=== PATIENT | female | born 2000 | race Two or more races ===

== ENCOUNTER 2023-02-02 17:26 | Emergency (ER) | payer OTHER ==
[~2023-02-02] VITALS: Ht 167.6 cm; Wt 65.4 kg
[2023-02-02] MEDS ORDERED: IBUPROFEN 600 MG TAB PO ONE (18:30)
[2023-02-02] MEDS ORDERED: AMOX500T3 PO (18:31)
[2023-02-02 18:36] VITALS: BP 123/65; PULSE 109; RESP 16; TEMP 99; O2SAT 97
== END 2023-02-02 18:40 | disposition home or self-care (01) ==
LOC: ER 17:26
DX: J03.90 Acute tonsillitis, unspecified (principal)

== ENCOUNTER 2024-11-06 13:32 | Emergency (ER) | payer SELFPAY ==
[~2024-11-06] VITALS: Ht 167.6 cm; Wt 70.6 kg
[~2024-11-06 13:32] MED LIST: AMOX500T3 PO
[2024-11-06] MEDS ORDERED: NAPR-746 PO (15:12)
--- NOTE | 2024-11-06 15:13 | ED.PDOC ---
Musculoskeletal HPI Comments 24 year old presents for L trigger finger to thumb. Symptoms come and go. Worsened with prolonged movements. Not taking medications at this time. Chief Complaint: Upper Extremity Time Seen by MD: 13:57 Primary Care Provider: CIELO Reviewed Notes: Nurses Notes, Medications, Allergies Allergies: Coded Allergies: NO KNOWN ALLERGIES (Unverified , 02/02/23) Home Meds Active Scripts Naproxen (Naproxen) 500 Mg Tab, 500 MG PO BIDPC for 14 Days, #28 TAB 0 Refills Prov:HARPREET DANIEL NP 11/06/24 Amoxicillin Trihydrate (Amoxicillin) 500 Mg Tab, 1 TAB PO BID for 10 Days, #20 TAB 0 Refills Prov:CIPRIANO FAUSTIN 02/02/23 Information Source: Patient Mode of Arrival: Ambulatory Past Medical History PAST MEDICAL HISTORY: Denies Surgical History: Denies all surgeries EMERGENCY DEPT TECH History: No Pertinent EMERGENCY DEPT TECH History Family History Family History: Reviewed,noncontributory to illness Social History Smoker: Non-Smoker Alcohol: Denies ETOH Use Drugs: Denies Drug Use Lives In: Home All Other Systems: Reviewed and Negative (Per HPI) Physical Exam General Appearance: No Apparent Distress, Normal HEENT: Normal ENT Inspection, Pharynx Normal, TMs Normal Neck: Full Range of Motion, Non-Tender, Normal, Normal Inspection Respiratory: Chest Non-Tender, Lungs Clear, No Accessory Muscle Use, No Respiratory Distress, Normal Breath Sounds Cardiovascular: No Edema, No JVD, No Murmur, No Gallop, Normal Peripheral Pulses, Regular Rate/Rhythm Breast Exam: Deferred Gastrointestinal: No Organomegaly, Non Tender, No Pulsatile Mass, Normal Bowel Sounds, Soft Genitalia: Deferred Pelvic: Deferred Rectal: Deferred Extremities: No calf tenderness, Normal capillary refill, Normal inspection, Normal range of motion, Non-tender, No pedal edema Musculoskeletal : Apperance: Normal Neurologic: Alert, retail wireless sales consultant II-XII nml as Tested, No Motor Deficits, Normal Affect, Normal Mood, No Sensory Deficits Cerebellar Function: Normal Reflexes: Normal Skin: Dry, Normal Color, Warm Lymphatic: No Adenopathy Was a procedure done? Was a procedure done?: No Images 1 - Localized TTP. Trigger finger noticeable with flexion-extension of the thumb Differential Diagnosis EXT Differential Diagnosis: Other X-Ray, Labs, Meds, VS Vital Signs Date Time Temp Pulse Resp B/P (MAP) Pulse Ox O2 Delivery O2 Flow Rate FiO2 11/06/24 15:14 73 16 99 Room Air 11/06/24 15:14 98.3 73 16 128/88 (101) 99 98.3 11/06/24 14:34 98.0 73 16 128/88 (101) 99 98.0 X-Ray, Labs, Meds, VS Comment Findings consistent with trigger finger. Conservative treatment for now. Patient is stable for discharge at this time. External notes reviewed. Test results and diagnostic imaging interpreted. All diagnostic findings, discharge care, education and instructions provided Follow-up with PCP in 2 to 3 days Patient verbalized understanding and agreed to treatment plan Vital signs stable, afebrile, no acute distress noted Patient ambulatory with strong steady gait Advised to return precautions for any new or worsening symptoms, return to ER immediately for re-evaluation Patient is aware that the purpose of this visit was for an acute medical emergency requiring emergent stabilization. Chronic conditions, including malignancies have not been ruled out. Patient is instructed to follow up with PCP as directed and discharge instructions for continued care and workup. If unable to arrange follow-up, patient is to return to the emergency department for reassessment. Patient (parent or legal guardian if applicable) was given verbal and written discharge instructions and acknowledges understanding. Time of 1ST Reevaluation: 17:59 Reevaluation 1ST: Improved Patient Education/Counseling: Diagnosis, Treatment Family Education/Counseling: Diagnosis, Treatment Departure 1 Departure Time of Disposition: 15:12 Impression: Primary Impression: Trigger finger, left Qualified Codes: M65.312 - Trigger thumb, left thumb Disposition: HOME / SELF CARE / HOMELESS Condition: Fair e-Prescriptions Naproxen (Naproxen) 500 Mg Tab 500 MG PO BIDPC for 14 Days, #28 TAB 0 Refills Prov: HARPREET DANIEL NP 11/06/24 Critical Care Note Critical Care Time?: No Stability Stability form required: No Heart Score Heart Score: Heart Score Response (Comments) Value History N/A 0 EKG N/A 0 Age N/A 0 Risk Factors N/A 0 Troponin N/A 0 Total 0 HARPREET DANIEL SHEET MANUFACTURING SUPERVISOR November 06, 2024 15:12
[2024-11-06 15:14] VITALS: BP 128/88; PULSE 73; RESP 16; TEMP 98.3; O2SAT 99
== END 2024-11-06 15:11 | disposition home or self-care (01) ==
LOC: ER 13:35
DX: M65.312 Trigger thumb, left thumb (principal); Z79.899 Other long term (current) drug therapy

== ENCOUNTER 2025-03-16 20:43 | Emergency (ER) | payer MEDICAID, OTHER ==
[~2025-03-16] VITALS: Ht 167.6 cm; Wt 64.0 kg
[~2025-03-16 20:43] MED LIST changes: +NAPR-746 PO
[2025-03-16 22:28] LABS: Hematocrit 39.7 % (36.0-46.0); Hemoglobin 13.2 g/dL (12.2-16.2); Mean Corpuscular Hemoglobin 28.0 pg (28.0-32.0); Mean Corpuscular Volume 83.9 fL (80.0-100.0); Nucleated Red Blood Cells % 0.1 %
[2025-03-16 22:38] LABS: Chloride 103 mmol/L (98-107); Potassium 4.0 mmol/L (3.5-5.1); Sodium 139 mmol/L (136-145)
[2025-03-16 22:39] LABS: Anion Gap 10 (5-15); Carbon Dioxide 26 mmol/L (20-31)
[2025-03-16 22:40] LABS: Calcium 10.0 mg/dL (8.7-10.4)
[2025-03-16 22:44] LABS: Glucose 98 mg/dL (74-106)
[2025-03-16 22:45] LABS: BUN/Creatinine Ratio 6.2 (10.0-20.0); Blood Urea Nitrogen < 5 mg/dL (9-23)
--- NOTE | 2025-03-17 04:36 | ED.PDOC ---
History of Present Illness HPI Comments 24-year-old female who presents with chief complaint of a nonradiating, RLQ abdominal pain, nausea, and diarrhea. Patient also reports heavy with large clot production, following recent onset of her menstrual cycle. Pain is worse with inspiration. Reports on being possibly . No endorsement of any recent travel, sick contact, injuries, or further relevant or pertinent history. Denies on having any vomiting, bloody stools, constipation, fever, chills, or further associated symptoms. REVIEW OF SYSTEMS: General: No fever, no chills, HEENT: No neck pain, no blurred vision Cardiac: No chest pain. No palpitations. Lungs: No shortness of breath, GI: Abdominal pain, nausea, diarrhea, no vomiting : Heavy vaginal bleeding with clot production. Musculoskeletal: No joint pain , no back pain Skin: No rash, no wound Neuro: No headache, no dizziness, no syncope PHYSICAL EXAM: General: Awake, alert and oriented. No acute distress. Skin: Skin in warm, dry and intact without rashes or lesions. HEENT: The head is normocephalic and atraumatic. Conjunctivae are clear without exudates or hemorrhage. Sclera is non-icteric. Neck: Normal range of motion. No JVD. Cardiac: Regular rate Respiratory: No signs of respiratory distress. No Stridor. Gastrointestinal: RLQ and right flank tenderness. Extremities: Upper and lower extremities are atraumatic in appearance without deformity. Neurological: The patient is awake, alert and oriented to person, place, and time with normal speech. Speech is clear. There is no facial asymmetry. Psychiatric: Appropriate mood and affect. Good judgement and insight. Chief Complaint: Abdominal Pain Time Seen by MD: 04:00 Primary Care Provider: CIELO Allergies: Coded Allergies: NO KNOWN ALLERGIES (Unverified , 02/02/23) Home Meds Active Scripts Naproxen (Naproxen) 500 Mg Tab, 500 MG PO BIDPC for 14 Days, #28 TAB 0 Refills Prov:HARPREET DANIEL NP 11/06/24 Amoxicillin Trihydrate (Amoxicillin) 500 Mg Tab, 1 TAB PO BID for 10 Days, #20 TAB 0 Refills Prov:CIPRIANO FAUSTIN 02/02/23 Information Source: Patient Mode of Arrival: Ambulatory Past Medical History PAST MEDICAL HISTORY: Denies Surgical History: Denies all surgeries LEGAL RECRUITER History: No Pertinent LEGAL RECRUITER History Family History Family History: Reviewed,noncontributory to illness Social History Smoker: Non-Smoker Alcohol: Denies ETOH Use Drugs: Denies Drug Use Lives In: Home Was a procedure done? Was a procedure done?: No Differential Dx Considerations may include: Differential diagnoses considered include: Abdominal aortic aneurysm, SC, esophageal rupture, intestinal obstruction, mesenteric ischemia, perforated viscus or solid organ rupture, CHF with hepatomegaly, pneumonia, abscess, appendicitis, biliary disease, diverticulitis, gastritis, gastroenteritis, hepatitis, hernia, inflammatory bowel disease, pancreatitis, peptic ulcer disease, urinary tract infection, ureteral colic, constipation, GERD, irritable syndrome, abdominal wall pain, nonspecific abdominal pain, herpes zoster, nephrolithiasis. Also ruptured ectopic , ovarian torsion/cyst, tubo- ovarian abscess, PID, endometriosis, mittleschmerz. X-Ray, Labs, Meds, VS Vital Signs Date Time Temp Pulse Resp B/P (MAP) Pulse Ox O2 Delivery O2 Flow Rate FiO2 03/17/25 10:15 Room Air* 0 21 03/17/25 10:01 75 17 108/66 03/17/25 10:00 98.1 84 18 108/66 (80) 98 98.1 03/17/25 07:06 98.2 86 20 109/50 (69) 99 98.2 03/17/25 07:06 62 20 99 Room Air 03/17/25 05:37 97.8 82 18 129/62 (84) 98 97.8 03/17/25 01:02 99.3 82 14 120/58 (78) 96 99.3 03/16/25 21:06 99.9 90 16 129/89 96 99.9 Lab Test 03/17/25 05:52 03/16/25 22:02 Range/Units Urine Color Yellow Yellow Urine Clarity Clear Clear Urine pH 6.0 5.0-9.0 Urine Specific Lipan 1.034 1.001-1.035 Urine Protein Trace H Negative Urine Ketones 4+ H Negative Urine Blood Normal Negative /uL Urine Nitrite Negative Negative Urine Bilirubin Negative Negative Urine Urobilinogen Normal Negative mg/dL Urine Leukocyte Esterase Negative Negative /uL Urine Glucose Normal Normal mg/dL Urine Test Negative Negative White Blood Count 14.7 H 4.4-10.8 10^3/uL Red Blood Count 4.73 4.0-5.20 10^6/uL Hemoglobin 13.2 12.2-16.2 g/dL Hematocrit 39.7 36.0-46.0 % Mean Corpuscular Volume 83.9 80.0-100.0 fL Mean Corpuscular Hemoglobin 28.0 28.0-32.0 pg Mean Corpuscular Hemoglobin Concent 33.3 32.0-36.0 g/dL Red Cell Distribution Width 14.3 11.8-14.3 % Platelet Count 346 140-450 10^3/uL Mean Platelet Volume 7.3 6.9-10.8 fL Neutrophils (%) (Auto) 82.3 H 37.0-80.0 % Lymphocytes (%) (Auto) 9.1 L 10.0-50.0 % Monocytes (%) (Auto) 7.9 0.0-12.0 % Eosinophils (%) (Auto) 0.6 0.0-7.0 % Basophils (%) (Auto) 0.1 0.0-2.0 % Neutrophils # (Auto) 12.1 H 1.6-8.6 10 ^3/uL Lymphocytes # (Auto) 1.3 0.4-5.4 10 ^3/uL Monocytes # (Auto) 1.2 0-1.3 10 ^3/uL Eosinophils # (Auto) 0.1 0-0.8 10 ^3/uL Basophils # (Auto) 0 0-0.2 10 ^3/uL Nucleated Red Blood Cells 0.1 % Sodium Level 139 136-145 mmol/L Potassium Level 4.0 3.5-5.1 mmol/L Chloride Level 103 98-107 mmol/L Carbon Dioxide Level 26 20-31 mmol/L Anion Gap 10 5-15 Blood Urea Nitrogen < 5 L 9-23 mg/dL Creatinine 0.81 0.550-1.02 mg/dL Glomerular Filtration Rate Calc 105 >90 mL/min BUN/Creatinine Ratio 6.2 L 10.0-20.0 Serum Glucose 98 74-106 mg/dL Calcium Level 10.0 8.7-10.4 mg/dL Time of 1ST Reevaluation: 04:30 Reevaluation 1ST: Unchanged Patient Education/Counseling: Need For Follow Up Family Education/Counseling: No Family Present Change of Shift?: Yes (Signed out to Dr. Irizarry at 0600) SEPSIS Sepsis Screen Date sepsis recognized/suspect: Mar 16, 2025 Time Sepsis recognized/suspect: 2110 Recent Procedure: No On Antibiotic Therapy: No Respiratory Rate >20: No Heart Rate >90: No Temp<36 C (96.8 F) or >38.3 C: No SBP <90 or MAP <65 mmHG: No New Acute Mental Status Change: No Is the patient on CPAP, BIPAP,: No Physician Orders Ct Ab Pel With Iv Con Only (03/17/25 04:12) Vital Signs Date Time Temp Pulse Resp B/P (MAP) Pulse Ox O2 Delivery O2 Flow Rate FiO2 03/17/25 10:15 Room Air* 0 21 03/17/25 10:01 75 17 108/66 03/17/25 10:00 98.1 84 18 108/66 (80) 98 98.1 03/17/25 07:06 98.2 86 20 109/50 (69) 99 98.2 03/17/25 07:06 62 20 99 Room Air 03/17/25 05:37 97.8 82 18 129/62 (84) 98 97.8 03/17/25 01:02 99.3 82 14 120/58 (78) 96 99.3 03/16/25 21:06 99.9 90 16 129/89 96 99.9 Laboratory Tests Test 03/16/25 22:02 White Blood Count 14.7 10^3/uL (4.4-10.8) H Departure 1 Departure Time of Disposition: 09:00 (Patient presented with abdominal pain that was concerning for possible appendicits, gastritis, cholecystitis, colitis, gastroenteritis, or orther possible surgical emergency. Data: 1. I ordered and reviewed the result of at least 3 labs including a CBC, BMP, and Urinalysis. 2. I independently interpreted the following tests: CT Abdoment and Pelvis is concerning for benign abdomen .Risk:This patient has a high risk of morbidity due to further diagnostic testing or treatment and may suffer from an acute abdominal process disorder. Fortunately workup reveals gastroenteritis and patient can be safely discharged to home with outpatient follow up.) Impression: Primary Impression: Gastroenteritis Additional Impression: Right lower quadrant abdominal pain Disposition: HOME / SELF CARE / HOMELESS Condition: Stable Additional Instructions: Your workup today was benign including normal labs, urine, and CT scan. You can take Tylenol or Motrin as needed for pain. You should follow up with your regular doctor within 1 week. You should stay well rested and well hydrated. If your symptoms worsen or you have any other concerns please return to the emergency room. Discharged With: Self Critical Care Note Critical Care Time?: No Stability Stability form required: No Heart Score Heart Score: Heart Score Response (Comments) Value History N/A 0 EKG N/A 0 Age N/A 0 Risk Factors N/A 0 Troponin N/A 0 Total 0 I personally scribed for DUGLAS FATIMA MD ([email or web address]) on 03/17/25 at 04:36. Electronically submitted by Solomon Emerson ([email or web address]). I personally scribed for DUGLAS FATIMA MD ([email or web address]) on 03/17/25 at 05:22. Electronically submitted by Solomon Emerson [email or web address]). DUGLAS FATIMA MD Mar 17, 2025 04:36 PRASAD DOMINGUEZ MD Mar 17, 2025 09:02
[2025-03-17 06:32] LABS: Urine Protein, UAD Trace (Negative)
[2025-03-17] MEDS: SODIUM CHLORIDE 0.9% 1,000 ML IV ONE (06:56)
--- NOTE | 2025-03-17 08:46 | DVH ---
CLINICAL HISTORY: Right lower quadrant abdominal pain TECHNIQUE: CT of the abdomen and pelvis was performed with IV contrast. This exam was performed accor ding to our departmental dose optimization program. Up-to-date CT equipment and radiation dose reduct ion techniques are utilized as appropriate. CTDI 6.5 DLP 339.2 COMPARISON: None FINDINGS: Abdomen/Pelvis: The spleen, pancreas, adrenal glands, kidneys, gallbladder, liver, and uterus are unremarkable. The b ladder is not well distended and therefore not well evaluated. The abdominal aorta is normal in course and caliber. There are no significant atherosclerotic calcifi cations. There is no free intraperitoneal air. There is trace nonspecific free fluid There is no enlarged abdominal or pelvic lymph node. There is no bowel wall thickening or dilatation. The appendix is not seen with certainty. No definite focal inflammatory process is seen in its expected location. Other: The imaged lower thorax is unremarkable. No acute osseous abnormality is evident. IMPRESSION: No acute abnormality in the abdomen or pelvis.
[2025-03-17 10:00] VITALS: TEMP 98.1; O2SAT 98
[2025-03-17] MEDS: ONDANSETRON HCL 4 MG/2 ML VIAL IV ONE (10:00)
[2025-03-17 10:01] VITALS: BP 108/66; PULSE 75; RESP 17
[2025-03-17] MEDS: MORPHINE SULFATE 4 MG/ML SYR/VIAL IV ONE (10:01)
[2025-03-17] MEDS: IOHEXOL 300 MG/ML 100ML BOTTLE IJ ONE (10:06)
== END 2025-03-17 10:25 | disposition home or self-care (01) ==
LOC: ER 20:43
DX: K52.9 Noninfective gastroenteritis and colitis, unspecified (principal)
CPT/HCPCS: 36415; 74177; 80048; 81003; 81025; 85025; 96361; 96374; 96375; 99285; J2270; J2405; J7030; Q9967